=== PATIENT | female | born 1995 | race Caucasian/White ===

== ENCOUNTER 2021-07-14 18:36 | Emergency (ER) | payer SELFPAY ==
[2021-07-14] MEDS ORDERED: Sodium Chloride 0.9% 1,000 ML IV ONE (18:59)
[2021-07-14] MEDS ORDERED: Acetaminophen 500 MG Tab PO ONE (18:59)
[2021-07-14 20:02] LABS: CORONAVIRUS COVID-19 NAA NEGATIVE (NEGATIVE); INFLUENZA A NAA POSITIVE (NEGATIVE); INFLUENZA B NAA NEGATIVE (NEGATIVE)
== END 2021-07-14 20:28 | disposition home or self-care (01) ==
LOC: MW.ED 18:36
DX: J10.1 Influenza due to other identified influenza virus with other respiratory manifestations (principal); Z20.822 Contact with and (suspected) exposure to COVID-19
CPT/HCPCS: 0240U; 71045; 99283; A9270; J7030